=== PATIENT | female | born 1930 | race Caucasian/White ===

== ENCOUNTER 2019-12-13 12:23 | Emergency (ER) | payer OTHER, MEDICARE ==
[~2019-12-13] VITALS: Ht 160 cm; Wt 95.2 kg
[~2019-12-13 12:23] MED LIST: ALBU90OI6 INH; ASPI81EC; ASPI81EC PO; ATOR20 PO; CETI10 PO; CHLO25B PO; FELO5CR; FLUN25SP; FORM12IH IH; HYDACE5 PO; INDO25 PO; LISI20 PO; METH5; METH5 PO; MULVITMIND PO; OMEP20ER PO; PARO10; RANI150; VENL37.5ER PO; VERA240ER; VERA240ERB PO
[2019-12-13] MEDS ORDERED: Vitamin D2000 UNIT PO (12:45)
[2019-12-13] MEDS ORDERED: Voltaren100 GM TOP (12:46)
[2019-12-13] MEDS ORDERED: Flonase 0.05% N16 GM (12:46)
[2019-12-13] MEDS ORDERED: HYDROCHLOROTH12.5 MG PO (12:47)
[2019-12-13] MEDS ORDERED: HYDHCL25 PO (12:47)
[2019-12-13] MEDS ORDERED: LOSARTAN POTAS100 MG PO (12:48)
[2019-12-13] MEDS ORDERED: LIDO5TO TOP (12:48)
[2019-12-13] MEDS ORDERED: THERA1 EACH PO (12:49)
[2019-12-13] MEDS ORDERED: Naproxen250 MG PO (12:50)
[2019-12-13] MEDS ORDERED: Pedi-Dri 100,0060 GM TOP (12:50)
[2019-12-13] MEDS ORDERED: OXYC5 PO (12:51)
[2019-12-13] MEDS ORDERED: OMEP20ER PO (12:51)
[2019-12-13] MEDS ORDERED: TOLT4 PO (12:51)
[2019-12-13] MEDS ORDERED: Ranitidine HCl300 MG PO (12:51)
[2019-12-13] MEDS ORDERED: VERA240ER PO (12:52)
[2019-12-13] MEDS ORDERED: MERIBIN5 M1 PO (12:52)
[2019-12-13 13:08] LABS: BASOPHILS ABSOLUTE AUTO 0.04 K/mm3 (0.00-0.23); BASOPHILS PERCENT AUTO 1 % (0-2); EOSINOPHILS ABSOLUTE AUTO 0.35 K/mm3 (0.00-0.68); EOSINOPHILS PERCENT AUTO 5 % (0-6); Hematocrit 35.7 % (33.0-51.0); IMMATURE GRAN ABSOLUTE AUTO 0.03 K/mm3 (0.00-0.10); IMMATURE GRAN PERCENT AUTO 0 % (0-1); LYMPHOCYTES ABSOLUTE AUTO 1.89 K/mm3 (0.84-5.20); LYMPHOCYTES PERCENT AUTO 26 % (21-46); MONOCYTES ABSOLUTE AUTO 0.73 K/mm3 (0.16-1.47); MONOCYTES PERCENT AUTO 10 % (4-13); Mean Corpuscular HGB 21.5 pg (26.0-34.0); Mean Corpuscular Volume 77 fL (80-100); Mean Platelet Volume 9.9 fL (9.1-12.4); NEUTROPHILS ABSOLUTE AUTO 4.29 K/mm3 (1.96-9.15); NEUTROPHILS PERCENT AUTO 59 % (41-73); Platelet Count 342 K/mm3 (150-400); RDW Coefficient Variation 16.5 % (11.7-14.2); RDW Standard Deviation 45.7 fL (35.1-46.3); Red Blood Cell Count 4.66 M/mm3 (3.80-5.20); White Blood Cell Count 7.33 K/mm3 (4.00-11.30)
[2019-12-13 13:29] LABS: Alanine Aminotransfer (ALT/SGP 16 U/L (12-78); Albumin, Blood 3.3 g/dL (3.4-5.0); Alk Phos 112 U/L (50-136); Anion Gap 4 mmol/L (6-16); Aspartate Aminotrans (AST/SGOT 18 U/L (12-37); Bilirubin, Total 0.6 mg/dL (0.1-1.0); Blood Urea Nitrogen 19 mg/dL (8-24); Bun/Creatinine Ratio 27.3 (12.0-20.0); CO2, Blood 32 mmol/L (21-32); Calcium, Blood 10.1 mg/dL (8.5-10.1); Chloride, Blood 107 mmol/L (98-108); Globulin, Blood 3.4 g/dL (2.2-4.0); Glomerular Filtration Rate >60 (60-); Glucose, Blood 95 mg/dL (70-99); Potassium, Blood 4.1 mmol/L (3.5-5.5); Sodium, Blood 143 mmol/L (136-145); Total Protein, Blood 6.7 g/dL (6.4-8.2); Troponin I <0.015 ng/mL (0.000-0.040)
== END 2019-12-13 16:21 | disposition home or self-care (01) ==
LOC: ER 12:23
PROVIDERS: Physician Assistant
DX: R07.9 Chest pain, unspecified (principal); I10 Essential (primary) hypertension; E78.5 Hyperlipidemia, unspecified; F32.9 Major depressive disorder, single episode, unspecified; K21.9 Gastro-esophageal reflux disease without esophagitis
CPT/HCPCS: 71046; 80053; 83880; 84484; 85025; 93005; 93010; 93925; 99285-25

== ENCOUNTER 2020-02-02 20:28 | Inpatient (IN) | payer OTHER, MEDICARE ==
[~2020-02-02] VITALS: Ht 154.9 cm; Wt 96.1 kg
[~2020-02-02 20:28] MED LIST changes: +Flonase 0.05% N16 GM; +HYDHCL25 PO; +HYDROCHLOROTH12.5 MG PO; +LIDO5TO TOP; +LOSARTAN POTAS100 MG PO; +MERIBIN5 M1 PO; +Naproxen250 MG PO; +OXYC5 PO; +Pedi-Dri 100,0060 GM TOP; +Ranitidine HCl300 MG PO; +THERA1 EACH PO; +TOLT4 PO; +VERA240ER PO; +Vitamin D2000 UNIT PO; +Voltaren100 GM TOP
[2020-02-02] MEDS ORDERED: VERA240ER PO ×2 (23:42→23:43)
[2020-02-02] MEDS ORDERED: TOLT2 PO (23:44)
[2020-02-03 04:09] LABS: BASOPHILS ABSOLUTE AUTO 0.03 K/mm3 (0.00-0.23); BASOPHILS PERCENT AUTO 0 % (0-2); EOSINOPHILS ABSOLUTE AUTO 0.35 K/mm3 (0.00-0.68); EOSINOPHILS PERCENT AUTO 4 % (0-6); Hematocrit 32.5 % (33.0-51.0); IMMATURE GRAN ABSOLUTE AUTO 0.05 K/mm3 (0.00-0.10); IMMATURE GRAN PERCENT AUTO 1 % (0-1); LYMPHOCYTES ABSOLUTE AUTO 1.16 K/mm3 (0.84-5.20); LYMPHOCYTES PERCENT AUTO 13 % (21-46); MONOCYTES PERCENT AUTO 11 % (4-13); Mean Corpuscular HGB 19.5 pg (26.0-34.0); Mean Corpuscular HGB Conc 27.7 g/dL (31.5-36.5); Mean Corpuscular Volume 70 fL (80-100); Mean Platelet Volume 9.6 fL (9.1-12.4); NEUTROPHILS ABSOLUTE AUTO 6.28 K/mm3 (1.96-9.15); NEUTROPHILS PERCENT AUTO 71 % (41-73); Platelet Count 339 K/mm3 (150-400); RDW Coefficient Variation 17.3 % (11.7-14.2); RDW Standard Deviation 42.8 fL (35.1-46.3); Red Blood Cell Count 4.62 M/mm3 (3.80-5.20); White Blood Cell Count 8.87 K/mm3 (4.00-11.30)
[2020-02-03 04:30] LABS: Anion Gap 6 mmol/L (6-16); Blood Urea Nitrogen 24 mg/dL (8-24); Bun/Creatinine Ratio 28.6 (12.0-20.0); CO2, Blood 32 mmol/L (21-32); Calcium, Blood 9.7 mg/dL (8.5-10.1); Chloride, Blood 100 mmol/L (98-108); Creatinine, Blood 0.84 mg/dL (0.40-1.00); Glomerular Filtration Rate >60 (60-); Glucose, Blood 93 mg/dL (70-99); Potassium, Blood 3.5 mmol/L (3.5-5.5); Sodium, Blood 138 mmol/L (136-145)
--- NOTE | 2020-02-03 04:46 | NUR ---
SHIFT SUMMARY: PT ADMITTED LAST NIGHT FROM ED FOR SBO. PT A&O X4. DENIES ABD PAIN UPON ARRIVAL. NG TUBE CONNECTED TO LIS AND DRAINING GREEN/BROWN DRG. DENIES N/V. OUT OF BED TO BATHROOM WITH SBA+FWW WITH MINIMAL ASSISTANCE. PT REPORTS HAVING BM YESTERDAY MORNING. PASSING FLATUS. NPO WITH FLUIDS INFUSING.
--- NOTE | 2020-02-03 09:57 | NUR ---
DENIES ANY NAUSEA, NGT TO LIS, C/O SORE THROAT, DENIES ANY ABD PAIN OR NAUSEA AT THIS TIME, ABD SOFT AND NONTENDER, MONITOR FOR ANY CHANGES, ASSIST OOB, MEDICATE FOR PAIN PRN.
--- NOTE | 2020-02-03 12:17 | NUR ---
DR. CANALES NOTIFIED DURING ROUNDS THAT VERAPAMIL AND COZAAR WERE HELD THIS AM DUE TO PT NPO STATUS.
--- NOTE | 2020-02-03 17:33 | NUR ---
OOB TO CHAIR, AMBULATED DOWN THE RAMÍREZ TODAY, TOLERATED WELL, DENIES ANY NAUSEA OR PAIN, C/O SORE THROAT REPORTS CHLORASEPTIC SPRAY IS HELPING, NGT DRAINING CLEAR LIGHT BROWNISH DRAINAGE, NO ACUTE CHANGES THIS SHIFT.
--- NOTE | 2020-02-04 07:34 | NUR ---
SUMMARY NG WITH RICHARD/PINK DRNG. FLUSHES AND RETURNS APROPRIATELY. PO SLEPT QUIETLY. REPORTS PASSING FLATUS.VOIDING.
--- NOTE | 2020-02-04 10:28 | NUR ---
NGT TO GRAVITY AT THIS TIME PER DR. SANTILLAN ORDER.
--- NOTE | 2020-02-04 12:48 | NUR ---
PER MILL OPERATOR HELPER PT CONVERTED TO AFIB FOR A LITTLE OVER 1 MIN AT ABOUT 1235, CURRENTLY NSR, HR 70S. SEE TELE STRIPS IN CHART. UPON ASSESSMENT PT IS SITTING IN CHAIR COMFORTABLY, VSS, PT DENIES CP, SOB. WILL CTM
--- NOTE | 2020-02-04 13:31 | NUR ---
AFIB PT HAD BRIEF EPISODE OF AFIB IN 150S WHILE AMBULATING TO RESTROOM. SAT IN RESTROOM, WENT BACK TO SR IN 80S.
--- NOTE | 2020-02-04 13:47 | NUR ---
PERSONAL BELONGINGS DELIVERED TO ROOM FROM ED ENTRANCE.
--- NOTE | 2020-02-04 14:27 | NUR ---
DR. PEDROZA MADE AWARE OF PT CONVERTING TO AFIB AND THEN BACK TO NSR X2 OCCASIONS TODAY AT THIS TIME. PT STABLE CURRENTLY, ASYMPTOMATIC. SEE TELE STRIPS IN CHART
--- NOTE | 2020-02-04 17:08 | NUR ---
SUMMARY: PT ADMITTED FOR SBO. HAS DONE WELL TODAY. PT HAS TOLERATED NGT TO GRAVITY AND SMALL AMT ICE CHIPS. DENIES N/V. REPORTS FLATUS, NO BM " BUT FEELS LIKE SHE COULD HAVE ONE". TELE AND VSS AT THIS TIME. PT IS A/O, USES CALL LIGHT. DENIES PAIN, NO ACUTE CONCERNS AT THIS TIME.
--- NOTE | 2020-02-04 19:37 | NUR ---
PER PLANT ENGINEER PT IN AFIB IN THE 110'S-120'S. HAS BEEN SUSTAINED NOW FOR AROUND 30 MINUTES. PT ASYMPTOMATIC, REPORTS SLIGHT SOB. PT STATED THAT WAS NORMAL FROM BEFORE. DENIES CP. SPOKE TO HOSPITALIST WHO WILL BE PLACING ORDERS. WILL CONTINUE TO MONITOR PATIENT FOR ANY CHANGES IN CHEST PAIN, LOC OR SHORTNESS OF BREATH.
--- NOTE | 2020-02-04 20:07 | NUR ---
EKG DONE. HOSPITALIST, PETRONA, IN TO SEE PT. LOPRESSOR GIVEN PER EMAR. TELE MONITOR AWARE.
[2020-02-04 20:59] LABS: Anion Gap 9 mmol/L (6-16); Blood Urea Nitrogen 19 mg/dL (8-24); Bun/Creatinine Ratio 26.3 (12.0-20.0); CO2, Blood 27 mmol/L (21-32); Calcium, Blood 9.2 mg/dL (8.5-10.1); Chloride, Blood 110 mmol/L (98-108); Creatinine, Blood 0.72 mg/dL (0.40-1.00); Glomerular Filtration Rate >60 (60-); Glucose, Blood 57 mg/dL (70-99); Magnesium, Blood 1.8 mg/dL (1.6-2.4); Potassium, Blood 5.1 mmol/L (3.5-5.5); Sodium, Blood 146 mmol/L (136-145)
--- NOTE | 2020-02-04 21:33 | NUR ---
SPOKE TO HOSPITALIST PETRONA REGARDING GLUCOSE LEVEL OF 57 ON LAB DRAW AND 47 ON FOLLOW UP FINGERSTICK. ORDERS TO GIVE 1 AMP OF D50 AND SIPS OF JUICE. PT ASYMPTOMATIC CURRENTLY, SITTING UP IN BED TOLERATED SIPS OF PO JUICE WELL. WILL HANG BAG OF 5% DEXTROSE ORDERED AND CONTIUE TO MONITOR PT.
[2020-02-04 21:58] LABS: Free Thyroxine 1.19 ng/dL (0.70-1.60)
[2020-02-04 22:01] LABS: Triiodothyronine, Free 1.75 pg/mL (2.18-3.98)
--- NOTE | 2020-02-04 23:21 | NUR ---
SPOKE TO HOSPITALIST PETRONA R/T ELEVATED TROPONIN. PLAN IS TO TRANSFER PT TO PCU FOR CLOSER MONITORING AND INCREASED LEVEL OF CARE. PT CURRENTLY RESTING IN BED, DENIES PAIN OR NAUSEA. DENIES SOB.
--- NOTE | 2020-02-04 23:48 | NUR ---
REPORT GIVEN TO JOSEFINA MELÉNDEZ IN PCU. WILL TRANSFER PT VIA BED. BELONGINGS WITH PATIENT AT THIS TIME. PATIENT AWARE OF TRANSFER AND ACCEPTING.
[2020-02-05 00:01] LABS: International Normalized Ratio 1.07; Prothrombin Time Results 11.4 Sec (9.7-11.5)
--- NOTE | 2020-02-05 07:31 | NUR ---
SHIFT SUMMARY PT ARRIVED VIA BED FROM SURG FLOOR; A&O X3; NEW ONSET AFIB; PROVIDER AT BEDSIDE; PO PLAVIX, ASPIRIN GIVEN W/ SIPS OF WATER; HEP BOLUS GIVEN; HEP GTT STARTED @ 13 U; LASIX IV GIEN; PT CONVERTED TO NSR APPROXIMATELY @ 0005; CBG >100 WILL MOVE TO Q4; VSS; O2 SATS >93 ON 1L NC; NG TUBE W/ GRAVITY; MINIMAL DRAINAGE NOTED; PT USED BEDPAN FOR URINATION; PT STATES SHE LIVES AT HOME W/ HER SISTER; DENIES NEEDS AT THIS TIME; CALL LIGHT IN REACH; BED IN LOWEST POSITION; REPORT GIVEN TO DAY SHIFT RN.
[2020-02-05 07:58] LABS: Anion Gap 4 mmol/L (6-16); Blood Urea Nitrogen 14 mg/dL (8-24); Bun/Creatinine Ratio 20.3 (12.0-20.0); CO2, Blood 32 mmol/L (21-32); Chloride, Blood 105 mmol/L (98-108); Creatinine, Blood 0.69 mg/dL (0.40-1.00); Glomerular Filtration Rate >60 (60-); Glucose, Blood 94 mg/dL (70-99); Potassium, Blood 3.8 mmol/L (3.5-5.5); Sodium, Blood 141 mmol/L (136-145)
--- NOTE | 2020-02-05 08:51 | NUR ---
echocardiogram complete
--- NOTE | 2020-02-05 18:25 | NUR ---
SHIFT SUMMARY PT IS A&OX4. NG TUBE WAS DISCONTINUED AFTER LUNCH PT WAS TOLERATING CLEAR LIQUIDS. PT REPORTS SHE IS STILL PASSING GAS. PT HAS DENIED ANY CHEST PAIN OR PRESSURE. TELEMETRY HAS SHOWN PT TO BE IN SINUS RHYTHM TODAY. CARDIOLOGY WAS CONSULTED BY DR AVILES AND PLAN IS STRESS TEST TOMORROW AFTERNOON. HEPARIN GTT CONTINUES TO INFUSE PER PHARMACY'S RECOMMENDATIONS. PT'S CBG HAS IMPROVED TODAY, NOW THAT PT IS ABLE TO HAVE CLEARS. D5W INFUSION WAS STOPPED. VITALS HAVE REMAINED STABLE.
--- NOTE | 2020-02-05 21:00 | NUR ---
ASSUMPTION OF CARE ASSUMED CARE OF PT @ 1900, PT AWAKE IN BED ORIENTED TO SELF, PLACE, EVENT AND FOLLOWING DIRECTIONS. O2 SATURATIONS 90% ON RA, INITIALLY DECLINED SUPPLEMENTAL O2 BUT THEN AGREED TO PLACE 2L PER NC. NSR PER TELE MONITOR. PT TOLERATING CLEAR LIQUID DIET, REPORTS SOME ACID REFLUX WHICH IS NORMAL FOR PT, CBG 108. PT DENIES CP, SOB, OR NAUSEA. HEPARIN INF, SEE FLOWSHEET. CALL LIGHT WITHIN REACH.
[2020-02-06 03:43] LABS: BASOPHILS ABSOLUTE AUTO 0.05 K/mm3 (0.00-0.23); BASOPHILS PERCENT AUTO 1 % (0-2); EOSINOPHILS ABSOLUTE AUTO 0.41 K/mm3 (0.00-0.68); EOSINOPHILS PERCENT AUTO 5 % (0-6); Hematocrit 33.2 % (33.0-51.0); IMMATURE GRAN ABSOLUTE AUTO 0.09 K/mm3 (0.00-0.10); IMMATURE GRAN PERCENT AUTO 1 % (0-1); LYMPHOCYTES ABSOLUTE AUTO 1.18 K/mm3 (0.84-5.20); LYMPHOCYTES PERCENT AUTO 13 % (21-46); MONOCYTES ABSOLUTE AUTO 0.67 K/mm3 (0.16-1.47); MONOCYTES PERCENT AUTO 8 % (4-13); Mean Corpuscular HGB 19.4 pg (26.0-34.0); Mean Corpuscular HGB Conc 27.1 g/dL (31.5-36.5); Mean Corpuscular Volume 72 fL (80-100); Mean Platelet Volume 9.3 fL (9.1-12.4); NEUTROPHILS ABSOLUTE AUTO 6.41 K/mm3 (1.96-9.15); NEUTROPHILS PERCENT AUTO 73 % (41-73); Platelet Count 374 K/mm3 (150-400); RDW Coefficient Variation 17.6 % (11.7-14.2); Red Blood Cell Count 4.64 M/mm3 (3.80-5.20); White Blood Cell Count 8.81 K/mm3 (4.00-11.30)
[2020-02-06 04:05] LABS: Alanine Aminotransfer (ALT/SGP 16 U/L (12-78); Albumin, Blood 2.7 g/dL (3.4-5.0); Albumin/Globulin Ratio 0.9 (0.8-1.8); Alk Phos 99 U/L (50-136); Anion Gap 4 mmol/L (6-16); Aspartate Aminotrans (AST/SGOT 18 U/L (12-37); Bilirubin, Total 0.3 mg/dL (0.1-1.0); Blood Urea Nitrogen 9 mg/dL (8-24); Bun/Creatinine Ratio 14.2 (12.0-20.0); CO2, Blood 32 mmol/L (21-32); Calcium, Blood 9.3 mg/dL (8.5-10.1); Chloride, Blood 105 mmol/L (98-108); Creatinine, Blood 0.63 mg/dL (0.40-1.00); Globulin, Blood 2.9 g/dL (2.2-4.0); Glomerular Filtration Rate >60 (60-); Glucose, Blood 119 mg/dL (70-99); Potassium, Blood 3.9 mmol/L (3.5-5.5); Sodium, Blood 141 mmol/L (136-145); Total Protein, Blood 5.6 g/dL (6.4-8.2)
--- NOTE | 2020-02-06 06:27 | NUR ---
SHIFT SUMMARY PT RESTED T/O SHIFT, AROUSES TO VERBAL STIMULI, ORIENTED TO SELF, EVENT, PLACE AND FOLLOWS DIRECTIONS. 02 SATURATIONS MAINTAINED>90% ON 2L PER NC WHILE SLEEPING, HR AND BP STABLE. PT TOLERATING CLEAR LIQUIDS, REPORTS NAUSEA THIS MORNING, PRN ZOFRAN PROVIDED WITH SOME RELEIF, CRACKERS PROVIDED, PT SLEEPING UPON REASSESSMENT. PT VOIDING PER BEDPAN. MORNING APTT 29.6, LIKELY D/T INFILTRATION OF LFA IV, IV DC'D. HEPARIN BOLUS x2 THIS SHIFT WITH INCREASES IN GTT RATE, CURRENTLY INFUSING AT 19u/kg/hr OR 25.8ml/hr. CALL LIGHT WITHIN REACH.
--- NOTE | 2020-02-06 09:43 | NUR ---
Pt is A&OX4 and denies pain at this time. Pt reports mild nausea and denies anxiety and SOB. Engaged in therapeutic discussion regarding Advanced Care Planning. Pt reports living at home with her sister. Pt reports having caregivers come into the home 3 times a week to assist with some of her ADLs. Pt is a and this RN thanked her for her service. Discussed current plan of care with Pt expressing no concerns. Confirmed Pt's wishes for DNR status. [facility] also [facility] Discussed stress test scheduled for today with Pt being agreeable. Pt also reports if cardiac intervention needs to be done she is agreeable if appropriate. Educated Pt on the importance of routine conversations with her PCP and specialists. Educated on the importance of developing multiple plans with PCP as disease process takes its coarse. Pt expressess appreciation of visit and reports no other concerns at this time. Spoke with Bedside RIKA Luis prior to visit and discussed case. Faxed request to [place] for copy of AD/POLST. Palliative Care will remain available.
--- NOTE | 2020-02-06 12:20 | NUR ---
Spiritual care visit conducted. Patient is sitting up in bed and alert. Patient shares about her home, living with her sister and their 2 dogs. Patient talks about her caodaism belief system and how she attend [facility] in [place] when she is well enough. Patient explains about her medical issues. I listen empathically, normalize patient's experience and provide pastoral pediatric genetic counselor and prayer. Patient responds well and shows signs of restored cheli. I will continue to remain available to patient and family.
--- NOTE | 2020-02-06 17:51 | NUR ---
PCU DAYSHIFT SUMMARY PATIENT ALERT AND ORIENTED X4 T/O SHIFT. PATIENT SBA WITH TRANSFERS (TOLERATES FAIR). PATIENT ON 2 LPM NC T/O SHIFT, SOB WITH EXCERTION - LUNG SOUNDS CLEAR TO DIM. PATIENT REMAINED IN NSR T/O SHIFT WITH NO CARDIAC EVENTS PER STAFF INTERNIST OFFICE BASED ONLY. PATIENT HAD 1ST PART OF STRESS TEST THIS SHIFT AND WILL HAVE 2ND HALF TOMORROW DAYSHIFT. PATIENT REMAINS NAUSEAS T/O SHIFT WITH INABILITY TO TOLERATE FOOD T/O SHIFT - MEDICATED PER EMAR. PATIENT WAS ABLE TO PASS 1 SMALL BOWEL MOVEMENT THIS SHIFT. HEPARIN GTT RUNNING PER EMAR. NO ACUTE CHANGES T/O SHIFT. WILL CONTINUE TO MONITOR AND GIVE REPORT TO NOC SHIFT RN. PT/OT THERAPIES STARTED THIS SHIFT.
--- NOTE | 2020-02-06 22:42 | NUR ---
SPIKE WITH PAHARMACIST ORDERS NOTED CONTINUE TO MONITOR AND REPORT CHANGE IN PATIENT CONDITION
--- NOTE | 2020-02-06 23:03 | NUR ---
ASSUME CARE: REPORT RECIEVED FROM SHANE OFF GOING RN. ASSIST TO BSC. MONITOR INTACT SHOWING SINUS RHYTHM HEART RATE 60'S-70'S. DENIES DISCOMFORT NO EMESIS OCC COUGH NON PRODUCTIVE LUNG SOUND CLEAR UPPER LOBES WITH DECREASED SOUNDS IN R BASE. RESPIRATIONS REGULAR AND EASY AT REST SOB WITH ACTIVITY. ABDOMEN SOFT/ TENDER WITH BOWEL SOUNDS FOUR QUADS. VOIDS ALEXANDRA URINE MIXED WITH SOFT FORMED BROWN STOOL MEDIUM AMT. TRACE EDEMA IN LOWER EXTREMITIES . EXTREMITIES PLACED ON PILLOWS. CONTINUE TO MONITOR AND REPORT CHANGE IN PATIENT CONDITION
[2020-02-07 03:40] LABS: BASOPHILS ABSOLUTE AUTO 0.03 K/mm3 (0.00-0.23); BASOPHILS PERCENT AUTO 0 % (0-2); EOSINOPHILS ABSOLUTE AUTO 0.21 K/mm3 (0.00-0.68); EOSINOPHILS PERCENT AUTO 3 % (0-6); Hematocrit 31.9 % (33.0-51.0); Hemoglobin 8.4 g/dL (11.5-16.0); IMMATURE GRAN ABSOLUTE AUTO 0.09 K/mm3 (0.00-0.10); IMMATURE GRAN PERCENT AUTO 1 % (0-1); LYMPHOCYTES ABSOLUTE AUTO 0.88 K/mm3 (0.84-5.20); LYMPHOCYTES PERCENT AUTO 10 % (21-46); MONOCYTES ABSOLUTE AUTO 0.89 K/mm3 (0.16-1.47); MONOCYTES PERCENT AUTO 10 % (4-13); Mean Corpuscular HGB 19.3 pg (26.0-34.0); Mean Corpuscular HGB Conc 26.3 g/dL (31.5-36.5); Mean Corpuscular Volume 73 fL (80-100); Mean Platelet Volume 9.3 fL (9.1-12.4); NEUTROPHILS ABSOLUTE AUTO 6.43 K/mm3 (1.96-9.15); NEUTROPHILS PERCENT AUTO 75 % (41-73); Platelet Count 353 K/mm3 (150-400); RDW Coefficient Variation 17.2 % (11.7-14.2); Red Blood Cell Count 4.35 M/mm3 (3.80-5.20); White Blood Cell Count 8.53 K/mm3 (4.00-11.30)
[2020-02-07 04:00] LABS: Alanine Aminotransfer (ALT/SGP 14 U/L (12-78); Albumin, Blood 2.4 g/dL (3.4-5.0); Albumin/Globulin Ratio 0.9 (0.8-1.8); Alk Phos 94 U/L (50-136); Anion Gap 4 mmol/L (6-16); Aspartate Aminotrans (AST/SGOT 16 U/L (12-37); Bilirubin, Total 0.3 mg/dL (0.1-1.0); Blood Urea Nitrogen 7 mg/dL (8-24); Bun/Creatinine Ratio 11.6 (12.0-20.0); CO2, Blood 30 mmol/L (21-32); Calcium, Blood 8.9 mg/dL (8.5-10.1); Chloride, Blood 107 mmol/L (98-108); Globulin, Blood 2.7 g/dL (2.2-4.0); Glomerular Filtration Rate >60 (60-); Glucose, Blood 107 mg/dL (70-99); Magnesium, Blood 1.4 mg/dL (1.6-2.4); Potassium, Blood 3.9 mmol/L (3.5-5.5); Sodium, Blood 141 mmol/L (136-145); Total Protein, Blood 5.1 g/dL (6.4-8.2)
[2020-02-07 04:22] LABS: Percent Saturation 5.6 % (15.0-50.0)
--- NOTE | 2020-02-07 07:30 | NUR ---
ASSUMED PATIENT CARE. PATIENT SLEEPING COMFORTABLY IN BED, NO SIGNS OF ACUTE DISTRESS. WCTM.
--- NOTE | 2020-02-07 12:08 | NUR ---
Spiritual care visit conducted. Patient is sitting on a chair and alert. Patient talks about her life growing up, about the cheli legacy passed down to her from her grandmother and about how her cheli is holding up today. I listen empathically and provide prayer. Patient verbalizes appreciation for the visit.
--- NOTE | 2020-02-07 17:42 | NUR ---
NO ACUTE EVENTS THIS SHIFT. HEPARIN DRIP WAS DC'd THIS SHIFT. PATIENT WAS ABLE TO A GOOD AMOUNT OF GAS THIS SHIFT. 2ND PART OF STRESS TEST WAS COMPLETED TODAY. PATIENT DID NO COMPLAIN OF ANY NAUSEA TODAY. PATIENT WAS ABLE TO WORK WITH PT/OT TODAY. PATIENT ANEMIC AND RECEIVED IV IRON SUPPLEMENT TODAY.
[2020-02-08 03:38] LABS: BASOPHILS ABSOLUTE AUTO 0.04 K/mm3 (0.00-0.23); BASOPHILS PERCENT AUTO 1 % (0-2); EOSINOPHILS ABSOLUTE AUTO 0.23 K/mm3 (0.00-0.68); EOSINOPHILS PERCENT AUTO 3 % (0-6); Hematocrit 29.2 % (33.0-51.0); Hemoglobin 7.8 g/dL (11.5-16.0); IMMATURE GRAN PERCENT AUTO 2 % (0-1); LYMPHOCYTES ABSOLUTE AUTO 0.88 K/mm3 (0.84-5.20); LYMPHOCYTES PERCENT AUTO 13 % (21-46); MONOCYTES ABSOLUTE AUTO 0.84 K/mm3 (0.16-1.47); MONOCYTES PERCENT AUTO 13 % (4-13); Mean Corpuscular HGB 19.4 pg (26.0-34.0); Mean Corpuscular HGB Conc 26.7 g/dL (31.5-36.5); Mean Corpuscular Volume 73 fL (80-100); Mean Platelet Volume 9.5 fL (9.1-12.4); NEUTROPHILS ABSOLUTE AUTO 4.65 K/mm3 (1.96-9.15); NEUTROPHILS PERCENT AUTO 69 % (41-73); Platelet Count 311 K/mm3 (150-400); RDW Coefficient Variation 17.4 % (11.7-14.2); Red Blood Cell Count 4.03 M/mm3 (3.80-5.20); White Blood Cell Count 6.74 K/mm3 (4.00-11.30)
[2020-02-08 04:06] LABS: Magnesium, Blood 1.8 mg/dL (1.6-2.4)
[2020-02-08 04:07] LABS: Alanine Aminotransfer (ALT/SGP 19 U/L (12-78); Albumin, Blood 2.5 g/dL (3.4-5.0); Alk Phos 102 U/L (50-136); Anion Gap 3 mmol/L (6-16); Aspartate Aminotrans (AST/SGOT 22 U/L (12-37); Bilirubin, Total 0.3 mg/dL (0.1-1.0); Blood Urea Nitrogen 8 mg/dL (8-24); Bun/Creatinine Ratio 12.4 (12.0-20.0); CO2, Blood 30 mmol/L (21-32); Calcium, Blood 9.3 mg/dL (8.5-10.1); Chloride, Blood 109 mmol/L (98-108); Creatinine, Blood 0.65 mg/dL (0.40-1.00); Globulin, Blood 2.6 g/dL (2.2-4.0); Glomerular Filtration Rate >60 (60-); Glucose, Blood 94 mg/dL (70-99); Potassium, Blood 3.8 mmol/L (3.5-5.5); Sodium, Blood 142 mmol/L (136-145); Total Protein, Blood 5.1 g/dL (6.4-8.2)
--- NOTE | 2020-02-08 04:35 | NUR ---
SHIFT SUMMARY PT A&O X3; PLEASANT & COMPLIANT W/ CARE; VSS; DENIES CP; NSR NOTED ON TELE; O2 SATS > 90 ON RA; TOLERATING CLEAR LIQUID DIET WELL; BEDPAN FOR VOIDING; CALLS APPROPRIATELY; DENIES NEEDS AT THIS TIME; CALL LIGHT IN REACH; BED IN LOWEST POSITION; WILL CONTINUE TO MONITOR CLOSELY UNTIL HAND OFF TO DAY SHIFT RN.
--- NOTE | 2020-02-08 09:44 | NUR ---
AM NOTE... ASSUMED CARE OF PT APROX 0700. PT IS A&Ox4 AND VERY [place]. PT'S VS STABLE AT THIS TIME. SHE IS SITTING UP IN THE CHAIR FOR BREAKFAST. L/S CLEAR T/O. BT PRSENT BUT HYPOACTIVE, ABD IS FRIM AND TENDER TO PALP IN THE LOWER QUADRANTS. PT IS ON RA WITH O2 SATS AT 93% PT REQUESTED NC AT 2L FOR COMFORT. TRACE EDEMA IS NOTED TO THE PT'S BLE/FEET. CALL LIGHT IN REACH WILL CONTINUE TO MONITOR
--- NOTE | 2020-02-08 17:27 | NUR ---
SHIFT SUMMARY... NO ACUTE NEGATIVE CHANGES NOTED THIS SHIFT. PT HAS DENIED ANY CHEST PAIN/PRESSURE N/V OR SOB THIS SHIFT. PT'S VS HAVE BEEN STABLE T/O SHIFT. PT HAS BEEN ABLE TO WALK TO THE BATHROOM TO VOID AND HAS BEEN UP IN THE CHAIR FOR MEALS AND SEVERAL HOURS AFTER MEALS. PT C/O TO THIS RN ABOUT HER "BUTT HURTING." THIS RN ASSESSED THE PT'S COCCYX AND BUTTOCKS, THERE IS AN AREA OF THE SKIN IN THE GLUTIAL CLEFT THAT HAS SPLIT OPEN, THIS AREA WAS CLEANED AND BARRIER CREAM APPLIED. ALSO THIS RN NOTED THE PT'S BUTTOCKS WERE DEEP PURPLE, ALL AREAS WERE STILL BLANCHABLE, PT DENIES ANY RECENT FALLS BUT STATES THE AREA IS VERY SORE. PT IS ENCOURAGED TO BE UP IN THE CHAIR FOR MEALS BUT TO NOT SIT IN THE CHAIR ALL DAY. Q2 TURNS WHILE IN BED IMPLEMENTED. PT HAS WORKED WITH PT/OT TODAY. PT WAS SEEN BY CARDIOLOGY AND IS PLANNING ON FOLLOWING UP WITH CARDIOLOGY AN OUTPATIENT. CALL LIGHT IN REACH WILL CONTINUE TO MONITOR UNTIL REPORT IS GIVEN TO ONCOMING RN.
--- NOTE | 2020-02-08 21:33 | NUR ---
ASSUMED CARE APPROXIMATELY 1899; PT SEEMED FRUSTRATED W/ WAY SHE WAS FEELING; C/O NAUSEA; ZOFRAN GIVEN PER EMAR; VSS; DENIES CP; O2 SATS >91 ON RA; THIS RN SAT W/ PT TO LISTEN TO FEELINGS; APPROXIMATELY 2029 PT BEGAN VOMITING; PROVIDER NOTIFIED OF PT CONTINUING TO VOMIT; NEW ORDERS GIVEN FOR ZOFRAN INCREASE; PHENEGRAN; & COMPAZINE; REFER TO EMAR; CALL LIGHT IN REACH; BED IN LOWEST POSITION
--- NOTE | 2020-02-08 22:45 | NUR ---
UPDATE PT CONTINUES TO VOMIT; PHENEGRAN & COMPAZINE ADMINISTERED PER EMAR; PT CHANGED; CLEANED; ORAL CARE PROVIDED
--- NOTE | 2020-02-08 23:25 | NUR ---
UPDATE PT CURRENTLY SLEEPING; HOB ELEVATED TO 90; CALL LIGHT IN REACH
[2020-02-09 04:07] LABS: BASOPHILS ABSOLUTE AUTO 0.05 K/mm3 (0.00-0.23); BASOPHILS PERCENT AUTO 0 % (0-2); EOSINOPHILS ABSOLUTE AUTO 0.05 K/mm3 (0.00-0.68); EOSINOPHILS PERCENT AUTO 0 % (0-6); Hematocrit 32.1 % (33.0-51.0); Hemoglobin 8.5 g/dL (11.5-16.0); IMMATURE GRAN ABSOLUTE AUTO 0.36 K/mm3 (0.00-0.10); IMMATURE GRAN PERCENT AUTO 3 % (0-1); LYMPHOCYTES ABSOLUTE AUTO 1.07 K/mm3 (0.84-5.20); LYMPHOCYTES PERCENT AUTO 9 % (21-46); MONOCYTES ABSOLUTE AUTO 0.89 K/mm3 (0.16-1.47); MONOCYTES PERCENT AUTO 8 % (4-13); Mean Corpuscular HGB 19.3 pg (26.0-34.0); Mean Corpuscular HGB Conc 26.5 g/dL (31.5-36.5); Mean Corpuscular Volume 73 fL (80-100); Mean Platelet Volume 10.1 fL (9.1-12.4); NEUTROPHILS ABSOLUTE AUTO 9.34 K/mm3 (1.96-9.15); NEUTROPHILS PERCENT AUTO 79 % (41-73); Platelet Count 378 K/mm3 (150-400); RDW Coefficient Variation 17.5 % (11.7-14.2); RDW Standard Deviation 45.5 fL (35.1-46.3); White Blood Cell Count 11.76 K/mm3 (4.00-11.30)
[2020-02-09 04:31] LABS: Alanine Aminotransfer (ALT/SGP 32 U/L (12-78); Albumin, Blood 2.8 g/dL (3.4-5.0); Albumin/Globulin Ratio 0.9 (0.8-1.8); Alk Phos 116 U/L (50-136); Anion Gap 3 mmol/L (6-16); Aspartate Aminotrans (AST/SGOT 43 U/L (12-37); Bilirubin, Total 0.4 mg/dL (0.1-1.0); Blood Urea Nitrogen 11 mg/dL (8-24); Bun/Creatinine Ratio 12.4 (12.0-20.0); CO2, Blood 32 mmol/L (21-32); Calcium, Blood 9.9 mg/dL (8.5-10.1); Chloride, Blood 106 mmol/L (98-108); Creatinine, Blood 0.89 mg/dL (0.40-1.00); Glomerular Filtration Rate >60 (60-); Glucose, Blood 108 mg/dL (70-99); Potassium, Blood 4.1 mmol/L (3.5-5.5); Sodium, Blood 141 mmol/L (136-145); Total Protein, Blood 5.8 g/dL (6.4-8.2)
--- NOTE | 2020-02-09 05:56 | NUR ---
SHIFT SUMMARY PT SHORT EPISODE OF N/V; ZOFRAN ADMINISTERED PER EMAR; MINIMAL VOLUME; VSS; O2 SATS >92 ON RA; PT CURRENTLY RESTING; CALL LIGHT IN REACH; BED IN LOWEST POSITION; WILL CONTINUE TO MONITOR CLOSELY UNTIL HAND OFF TO DAY SHIFT RN.
--- NOTE | 2020-02-09 07:55 | NUR ---
AM NOTE... ASSUMED CARE OF PT APROX 0700. PT IS A&Ox3 WITH MOMENTS OF FORGETFULNESS. PER NOC SHIFT RN REPORT PT HAD N/V ALL NIGHT WITH VERY LITTLE SLEEP. THIS AM PT IS VERY TIRED AND REFUSED BREAKFAST AND/OR GETTING UP IN THE CHAIR. PT'S VS STABLE AT THIS TIME. L/S CLEAR T/O COARSE DIM INTHE BASES. BT PRESENT BUT HYPOACTIVE, ABD SOFT BUT SLIGHTLY TENDER TO PALP IN THE LOWER QUADRANTS. PT'S BUTTOCKS STILL HAS AREAS OF DARK PURPLE AND RED FROM "SITTING IN A CHAIR AT HOME ALL DAY" PER THE PT. PT IS EDUCATED AGAIN ABOUT PRESSURE ULCER PREVENTION AND REPOSITIONING. PT VERBALIZED HER UNDERSTANDING. CALL LIGHT IN REACH WILL CONTINUE TO MONITOR.
--- NOTE | 2020-02-09 14:45 | NUR ---
TRANSFER NOTE REPORT TAKEN FROM ELLEN MELÉNDEZ. PT BROUGHT BY W/C FROM [facility]. PT IS A&O, PT HAS SL IN PLACE WRIST 20G. PT ON RA. PT ORIENTED TO ROOM.
--- NOTE | 2020-02-09 19:17 | NUR ---
SHIFT SUMMARY PT A&O TRANSFERRED FROM PCU EARLIER THIS SHIFT, PT TOLORATED DINNER WELL AND ROZ NAUSEA. PT ENCOURAGED TO REPOSITION Q 2HR TO REDUCE REDNESS TO COCCXY. PT ROZ ANY PAIN THIS SHIFT. PT HAS CALL LIGHT WITH IN REACH AND WILL REPORT TO ONCOMING SHIFT.
--- NOTE | 2020-02-10 02:07 | NUR ---
INSOMNIA: PATIENT REPORTS INSOMNIA, DR AVILES IS NOTIFIED AND ORDER FOR MELATONIN PRN IS OBTAINED.
[2020-02-10 05:06] LABS: Hematocrit 29.1 % (33.0-51.0); Hemoglobin 7.8 g/dL (11.5-16.0); Mean Corpuscular HGB 19.5 pg (26.0-34.0); Mean Corpuscular HGB Conc 26.8 g/dL (31.5-36.5); Mean Corpuscular Volume 73 fL (80-100); Mean Platelet Volume 10.2 fL (9.1-12.4); Platelet Count 350 K/mm3 (150-400); RDW Coefficient Variation 17.8 % (11.7-14.2); RDW Standard Deviation 45.3 fL (35.1-46.3)
[2020-02-10 05:22] LABS: Albumin, Blood 2.5 g/dL (3.4-5.0); Anion Gap 4 mmol/L (6-16); Blood Urea Nitrogen 12 mg/dL (8-24); Bun/Creatinine Ratio 15.1 (12.0-20.0); CO2, Blood 32 mmol/L (21-32); Calcium, Blood 9.1 mg/dL (8.5-10.1); Chloride, Blood 106 mmol/L (98-108); Creatinine, Blood 0.79 mg/dL (0.40-1.00); Glomerular Filtration Rate >60 (60-); Glucose, Blood 92 mg/dL (70-99); Phosphorus, Blood 2.9 mg/dL (2.5-4.9); Sodium, Blood 142 mmol/L (136-145)
--- NOTE | 2020-02-10 08:29 | NUR ---
SHIFT SUMMARY: PATIENT REPORTS GOOD EFFECT FROM MELATONIN FOR SLEEP. VS ARE STABLE. NO COMPLAINTS OF PAIN. PATIENT IS SOB WITH ACTIVITY AND DESTED TO 89% ON RA DURING SLEEP, 2L WAS APPLIED AND SAT GOES UP TO 93% GAIT IS STEADY WITH FWW AND SBA OF 1.
[2020-02-10] MEDS ORDERED: MELA3 PO (10:48)
[2020-02-10] MEDS ORDERED: XARELTO20 MG PO (10:49)
--- NOTE | 2020-02-10 13:53 | NUR ---
PT DCD HOME WITH SISTER, CAREGIVER AND HOME HEALTH. ACCORDING TO PT BERTRAM SHE IS BACK TO BASELINE AND DR LALA. IV REMOVED WITH NO ISSUE. ALL INSTRUCTIONS REVIEWED WITH PT WHO VERBALIZED AN UNDERSTANDING. MED REC FAXED TO [facility] PER PT REQUEST. PT STATED SHE WOULD SCHEDULE HER OWN FOLLOW UP APPTS. ALL PERSONAL BELONGINGS SENT WITH PT. SISTER DROVE PT HOME. PT STABLE UPON DC.
== END 2020-02-10 13:53 | disposition home health service (06) | DRG 388 ==
LOC: ER 20:28 → SURS 22:50 → PCU 22:50 → SURS 23:29 → PCU 02-04 23:58 → MEDS 02-09 14:39 → ENPENDDIS 02-10 10:05 → MEDS 02-10 13:53
PROVIDERS: Internal Medicine; Nurse Practitioner Acute Care; ADMIT Internal Medicine
DX: K56.609 Unspecified intestinal obstruction, unspecified as to partial versus complete obstruction (principal); I21.4 Non-ST elevation (NSTEMI) myocardial infarction; M19.90 Unspecified osteoarthritis, unspecified site; I10 Essential (primary) hypertension; K21.9 Gastro-esophageal reflux disease without esophagitis; Z96.641 Presence of right artificial hip joint; Z96.651 Presence of right artificial knee joint; Z87.891 Personal history of nicotine dependence; E66.9 Obesity, unspecified; E16.2 Hypoglycemia, unspecified; E11.9 Type 2 diabetes mellitus without complications; I48.0 Paroxysmal atrial fibrillation; Z66 Do not resuscitate; Z68.37 Body mass index [BMI] 37.0-37.9, adult; F32.9 Major depressive disorder, single episode, unspecified; G47.33 Obstructive sleep apnea (adult) (pediatric)
CPT/HCPCS: 36415; 36416; 71045; 78452; 80048; 80053; 80069; 82607; 82728; 82746; 82947; 83540; 83550; 83735; 83880; 84100; 84436; 84439; 84443; 84481; 84484; 85025; 85027; 85049; 85610; 85730; 93005; 93010; 93017; 93306; 94761; 97110; 97116; 97162; 97166; 97530; 97535; 99285; A9270-GY; A9500; C9113; J0780; J1644; J1940; J2405; J2550; J2785; J2916; J3475; J3480; J7070

== ENCOUNTER → 2020-02-21 | Outpatient (CLI) | payer MEDICARE ==
[~2020-02-21] MED LIST changes: +MELA3 PO; +TOLT2 PO; +XARELTO20 MG PO
[2020-02-21 16:15] LABS: Anion Gap 4 mmol/L (6-16); Blood Urea Nitrogen 12 mg/dL (8-24); Bun/Creatinine Ratio 18.6 (12.0-20.0); CO2, Blood 32 mmol/L (21-32); Calcium, Blood 9.5 mg/dL (8.5-10.1); Chloride, Blood 105 mmol/L (98-108); Creatinine, Blood 0.64 mg/dL (0.40-1.00); Glomerular Filtration Rate >60 (60-); Glucose, Blood 109 mg/dL (70-99); Potassium, Blood 3.7 mmol/L (3.5-5.5); Sodium, Blood 141 mmol/L (136-145)
== END | disposition home or self-care (01) ==
LOC: LAB 14:53 → LAB SHORT 14:53
PROVIDERS: Internal Medicine Nephrology
DX: I10 Essential (primary) hypertension (principal); I48.0 Paroxysmal atrial fibrillation; I21.4 Non-ST elevation (NSTEMI) myocardial infarction
CPT/HCPCS: 80048; 83880

== ENCOUNTER → 2020-02-24 | Outpatient (CLI) | payer OTHER, MEDICARE ==
[2020-02-24 15:59] LABS: Alanine Aminotransfer (ALT/SGP 19 U/L (12-78); Albumin, Blood 2.9 g/dL (3.4-5.0); Albumin/Globulin Ratio 0.9 (0.8-1.8); Alk Phos 104 U/L (50-136); Anion Gap 7 mmol/L (6-16); Aspartate Aminotrans (AST/SGOT 23 U/L (12-37); Bilirubin, Total 0.3 mg/dL (0.1-1.0); Blood Urea Nitrogen 15 mg/dL (8-24); CO2, Blood 30 mmol/L (21-32); Calcium, Blood 9.1 mg/dL (8.5-10.1); Chloride, Blood 103 mmol/L (98-108); Creatinine, Blood 0.68 mg/dL (0.40-1.00); Globulin, Blood 3.2 g/dL (2.2-4.0); Glomerular Filtration Rate >60 (60-); Glucose, Blood 113 mg/dL (70-99); Potassium, Blood 4.1 mmol/L (3.5-5.5); Sodium, Blood 140 mmol/L (136-145); Total Protein, Blood 6.1 g/dL (6.4-8.2)
== END ==
LOC: OLS 12:15 → LAB SHORT 12:15
PROVIDERS: Family Medicine
DX: I48.0 Paroxysmal atrial fibrillation (principal); I21.4 Non-ST elevation (NSTEMI) myocardial infarction
CPT/HCPCS: 80053; 83880

== ENCOUNTER 2020-05-01 13:48 | Emergency (ER) | payer OTHER, MEDICARE ==
[~2020-05-01] VITALS: Ht 154.9 cm; Wt 90.7 kg
[2020-05-01] MEDS ORDERED: OXYC5 PO (15:41)
== END 2020-05-01 18:33 | disposition home or self-care (01) ==
LOC: ER 13:48
DX: M54.5 Low back pain (principal); L98.419 Non-pressure chronic ulcer of buttock with unspecified severity; Z79.899 Other long term (current) drug therapy; I10 Essential (primary) hypertension; F32.9 Major depressive disorder, single episode, unspecified; K21.9 Gastro-esophageal reflux disease without esophagitis; Z87.891 Personal history of nicotine dependence
CPT/HCPCS: 72170; 99283-25

== ENCOUNTER 2020-05-05 07:33 | Inpatient (IN) | payer OTHER, MEDICARE ==
[~2020-05-05] VITALS: Ht 154.9 cm; Wt 93.7 kg
[2020-05-05 08:07] LABS: BASOPHILS ABSOLUTE AUTO 0.04 K/mm3 (0.00-0.23); BASOPHILS PERCENT AUTO 1 % (0-2); EOSINOPHILS ABSOLUTE AUTO 0.15 K/mm3 (0.00-0.68); EOSINOPHILS PERCENT AUTO 2 % (0-6); Hematocrit 22.4 % (33.0-51.0); IMMATURE GRAN ABSOLUTE AUTO 0.04 K/mm3 (0.00-0.10); IMMATURE GRAN PERCENT AUTO 1 % (0-1); LYMPHOCYTES ABSOLUTE AUTO 1.46 K/mm3 (0.84-5.20); LYMPHOCYTES PERCENT AUTO 19 % (21-46); MONOCYTES ABSOLUTE AUTO 0.63 K/mm3 (0.16-1.47); MONOCYTES PERCENT AUTO 8 % (4-13); Mean Corpuscular HGB 17.6 pg (26.0-34.0); Mean Corpuscular HGB Conc 25.4 g/dL (31.5-36.5); Mean Corpuscular Volume 69 fL (80-100); Mean Platelet Volume 10.4 fL (9.1-12.4); NEUTROPHILS ABSOLUTE AUTO 5.26 K/mm3 (1.96-9.15); NEUTROPHILS PERCENT AUTO 69 % (41-73); NRBC ABSOLUTE 0.03 K/mm3 (0.00-0.02); NRBC Auto 0.4 /100 WBC (0.0-0.2); Platelet Count 386 K/mm3 (150-400); RDW Coefficient Variation 18.6 % (11.7-14.2); RDW Standard Deviation 45.9 fL (35.1-46.3); Red Blood Cell Count 3.23 M/mm3 (3.80-5.20); White Blood Cell Count 7.58 K/mm3 (4.00-11.30)
[2020-05-05 08:12] LABS: Hemoglobin 5.7 g/dL (11.5-16.0)
[2020-05-05 08:24] LABS: Albumin, Blood 3.3 g/dL (3.4-5.0); Bilirubin, Total 0.4 mg/dL (0.1-1.0); Bun/Creatinine Ratio 31.2 (12.0-20.0); Calcium, Blood 9.6 mg/dL (8.5-10.1); Creatinine, Blood 1.28 mg/dL (0.40-1.00); Globulin, Blood 3.2 g/dL (2.2-4.0); Total Protein, Blood 6.5 g/dL (6.4-8.2); Troponin I 0.162 ng/mL (0.000-0.040)
[2020-05-05] MEDS ORDERED: HYDCHL25 PO (09:30)
[2020-05-05 11:22] LABS: Percent Saturation 1.9 % (15.0-50.0)
--- NOTE | 2020-05-05 13:44 | NUR ---
ECHOCARDIOGRAM COMPLETE
[2020-05-05 18:06] LABS: Source, Urine Catheter
[2020-05-05 18:11] LABS: Bilirubin, Urine Neg (Neg); Blood, Urine 1+ (Neg); Glucose Qualitative, Urine Neg (Neg); Ketones, Urine Neg (Neg); Leukocyte Esterase, Urine Neg (Neg); Nitrite, Urine Neg (Neg); Protein, Urine Neg (Neg); Urobilinogen, Urine NORM (Normal)
[2020-05-05 18:17] LABS: Appearance, Urine Clear (Clear); Color, Urine Pale Yellow (P-Yellow); Red Blood Cells, Urine Not Seen /hpf (0-2); White Blood Cells, Urine Not Seen /hpf (0-5)
[2020-05-05 18:18] LABS: Bacteria Not Seen /hpf; Squamous Epithelial Cells Rare /hpf (Few)
--- NOTE | 2020-05-05 19:30 | NUR ---
PT ARRIVED TO THE UNIT VIA STRETCHER. PT IS ALERT AND ORIENTED X3 EXTREMELY HARD OF HEARING. PT IS HERE FOR ACUTE ANEMIA POSS GI BLEED, HGB AT 5.7 2 TOTAL OF PRBC INFUSED REPEAT H&H AT 8P. PT LUNGS COARSE AND WHEEZY UPON ARRIVAL, PT C/O /SOB, SATS ABOVE 95% ON ROOMAIR, ORDER FOR COPD/BD PROTOCOL PT WAS RELIEVED AFTER BREATHING TX, TOTAL OF 40MG LASIX WAS ALSO GIVEN. PT WAS ALSO GIVEN 1000MG MG SULFATE PT HAD FALSE RUNS OF TORSADES RHYTHM ON THE MONITOR UPON GETTING UP TO USE THE COMMODE. DR HELTON VERIFIED IT WAS NOT A REAL ONE, PT WAS NOT C/O ANY SYMPTOMS AT ALL. PT IS NOW ON BED REST [place] IN PLACE SINCE PT IS DIURESING. DR BARRIOS ALSO SAW PT THIS SHIFT, PT IS FOR POSS ENDOSCOPY TOMORROW. NO OTHER ISSUES ENCOUNTERED FOR THE SHIFT REPROT GIVEN TO KATHYA MELÉNDEZ
[2020-05-05 20:23] LABS: Hematocrit 29.9 % (33.0-51.0); Hemoglobin 8.5 g/dL (11.5-16.0)
[2020-05-06 04:16] LABS: BASOPHILS ABSOLUTE AUTO 0.05 K/mm3 (0.00-0.23); BASOPHILS PERCENT AUTO 0 % (0-2); EOSINOPHILS ABSOLUTE AUTO 0.05 K/mm3 (0.00-0.68); EOSINOPHILS PERCENT AUTO 0 % (0-6); Hematocrit 28.1 % (33.0-51.0); IMMATURE GRAN ABSOLUTE AUTO 0.11 K/mm3 (0.00-0.10); IMMATURE GRAN PERCENT AUTO 1 % (0-1); LYMPHOCYTES ABSOLUTE AUTO 1.41 K/mm3 (0.84-5.20); LYMPHOCYTES PERCENT AUTO 12 % (21-46); MONOCYTES ABSOLUTE AUTO 0.92 K/mm3 (0.16-1.47); MONOCYTES PERCENT AUTO 8 % (4-13); Mean Corpuscular HGB 20.5 pg (26.0-34.0); Mean Corpuscular HGB Conc 28.5 g/dL (31.5-36.5); Mean Corpuscular Volume 72 fL (80-100); NEUTROPHILS PERCENT AUTO 79 % (41-73); NRBC ABSOLUTE 0.06 K/mm3 (0.00-0.02); NRBC Auto 0.5 /100 WBC (0.0-0.2); Platelet Count 365 K/mm3 (150-400); RDW Coefficient Variation 19.9 % (11.7-14.2); RDW Standard Deviation 50.4 fL (35.1-46.3); Red Blood Cell Count 3.91 M/mm3 (3.80-5.20); White Blood Cell Count 12.04 K/mm3 (4.00-11.30)
[2020-05-06 04:28] LABS: Stool Occult Blood Guaiac 1 Pos (Neg)
[2020-05-06 04:30] LABS: International Normalized Ratio 1.11; Prothrombin Time Results 11.8 Sec (9.7-11.5)
[2020-05-06 04:32] LABS: Alanine Aminotransfer (ALT/SGP 13 U/L (12-78); Albumin, Blood 3.1 g/dL (3.4-5.0); Alk Phos 96 U/L (50-136); Anion Gap 5 mmol/L (6-16); Aspartate Aminotrans (AST/SGOT 9 U/L (12-37); Bilirubin, Total 0.9 mg/dL (0.1-1.0); Blood Urea Nitrogen 29 mg/dL (8-24); Bun/Creatinine Ratio 34.2 (12.0-20.0); CO2, Blood 32 mmol/L (21-32); Calcium, Blood 9.5 mg/dL (8.5-10.1); Chloride, Blood 99 mmol/L (98-108); Creatinine, Blood 0.85 mg/dL (0.40-1.00); Globulin, Blood 3.2 g/dL (2.2-4.0); Glomerular Filtration Rate >60 (60-); Glucose, Blood 136 mg/dL (70-99); Magnesium, Blood 1.8 mg/dL (1.6-2.4); Potassium, Blood 3.7 mmol/L (3.5-5.5); Sodium, Blood 136 mmol/L (136-145); Total Protein, Blood 6.3 g/dL (6.4-8.2)
--- NOTE | 2020-05-06 06:03 | NUR ---
ASSUMED CARE OF PATIENT AT 1915, PATIENT WITH EXPIRATORY WHEEZES, ALERT AND ORIENTED NOT CP BUT IS COMPLAINING OF SOB WITH ACTIVITY. MOVED TO CHAIR AND BACK TO BED TO FIND A BETTER POSITION FOR BREATHING. ON 2L NC. HEMOGLOBIN CAME BACK 8 AFTER TRANSFUSION. STOOL SAMPLE SENT TO LAB. BED LOWERED TO LOWEST POSITION, CALL LIGHT WITHIN REACH. WILL CONTINUE TO MONITOR UNTIL END OF SHIFT
--- NOTE | 2020-05-06 11:50 | NUR ---
ASSUME CARE: PT CONVERTED TO NSR AT 70'S THIS MORNING, THE REST OF THE VITALS REMAINED STABLE. PT TITRATED TO 1L OF O2 VIA NASAL CANNULA. PT TO HAVE ENDOSCOPY DONE TODAY IN THE AFTERNOON. PT REMAINED NPO. NO OTHER COMPLAINS/ISSUES AT THIS TIME. WILL MONITOR
--- NOTE | 2020-05-06 16:00 | NUR ---
PT TRANSFERED TO [facility] VIA GURNEY FROM PCU. History, Chart, Medications and Allergies reviewed before start of procedure. Lungs clear T/O to Auscultation. Patient confirms NPO status and agrees with scheduled surgery. Pre-Op teaching done. Pt verbalizes understanding.
--- NOTE | 2020-05-06 16:19 | NUR ---
05/06/20 1617 Yoni Taveras History, Chart, Medications and Allergies reviewed before start of procedure.MONITOR INTACT WITH CONTINUOUS PULSE OXIMETRY AND INTERMITTENT BP.3-LEAD EKG REVIEWED WITH PHYSICIAN PRIOR TO START OF PROCEDURE.O2 VIA N/C INTACT THROUGHOUT SEDATION/PROCEDURE. See Anesthesia record.
--- NOTE | 2020-05-06 16:42 | NUR ---
PT CURRENTLY OFF TO DAY SURGERY FOR ENDOSCOPY.
--- NOTE | 2020-05-06 18:01 | NUR ---
PT SUMMARY: SEE PREVIOUS NOTES: PT ALERT AND ORIENTED, VITALS STABLE HRR CONVERTED TO NSR 70'S, BP SYSTOLIC 120'S, SATS ABOVE 95% ON 2L OF O2 VIA NC. ENDOSCOPY DONE TODAY PT IS POSITIVE FOR ESOPHAGEAL VARICES NO INTERVENTION DONE CURRENTLY NOT ACTIVELY BLEEDING. PER DR BARRIOS PT CANNOT BE ON ANY BLOOD THINNERS ANYMORE. NO OTHER ISSUES ENCOUNTERED FOR THE SHIFT, PT NOW ON CARDIAC DIET. WORKED WITH THERAPY WITH NO ISSUES, UP IN THE RECLINER MOST OF THE SHIFT. TYLENOL ORDERED FOR BACK PAIN. PT CURRENTLY RESTIGN IN BED CALL LIGHTS WITHIN REACH WILL REPORT TO ONCOMING SHIFT.
--- NOTE | 2020-05-07 06:36 | NUR ---
SHIFT SUMMARY: PATIENT VSS, C/O NOT ENOUGH PAIN CONTROL WITH TYLENOL BUT SLEEPS WELL AFTER ADMINISTRATION OF MEDICATION. NO OTHER ISSUES NOTED, BED LOW AND LOCKED, CALL LIGHT WITHIN REACH.
[2020-05-07 09:30] LABS: Hematocrit 29.8 % (33.0-51.0); Hemoglobin 8.3 g/dL (11.5-16.0); Mean Corpuscular HGB 20.6 pg (26.0-34.0); Mean Corpuscular HGB Conc 27.9 g/dL (31.5-36.5); Mean Corpuscular Volume 74 fL (80-100); Mean Platelet Volume 9.8 fL (9.1-12.4); NRBC ABSOLUTE 0.03 K/mm3 (0.00-0.02); NRBC Auto 0.3 /100 WBC (0.0-0.2); Platelet Count 409 K/mm3 (150-400); RDW Coefficient Variation 21.2 % (11.7-14.2); RDW Standard Deviation 55.3 fL (35.1-46.3); Red Blood Cell Count 4.02 M/mm3 (3.80-5.20); White Blood Cell Count 8.91 K/mm3 (4.00-11.30)
[2020-05-07 09:49] LABS: Anion Gap 4 mmol/L (6-16); Blood Urea Nitrogen 23 mg/dL (8-24); Bun/Creatinine Ratio 28.3 (12.0-20.0); CO2, Blood 33 mmol/L (21-32); Calcium, Blood 9.8 mg/dL (8.5-10.1); Chloride, Blood 100 mmol/L (98-108); Creatinine, Blood 0.81 mg/dL (0.40-1.00); Glomerular Filtration Rate >60 (60-); Glucose, Blood 118 mg/dL (70-99); Potassium, Blood 3.6 mmol/L (3.5-5.5); Sodium, Blood 137 mmol/L (136-145)
--- NOTE | 2020-05-07 18:25 | NUR ---
PT SUMMARY: PT ALERT AND ORIENTED. NO COMPLAINS/ISSUES ENCOUNTERED FOR THE SHIFT, VITALS HAS BEEN STABLE. PT PARTICIPATED WITH THERAPY NO ISSUES. PT WAS UP MOSTLY IN THE RECLINER FOR THE SHIFT. PT PLAN TO [facility]CHARGE [facility] PT IS AWARE AND AGREEABLE. WILL REPORT TO ONCOMING SHIFT
--- NOTE | 2020-05-08 05:35 | NUR ---
SHIFT SUMMARY: PATIENT HAD SOME EPISODES OF FORGETFUL/CONFUSED MOMENTS, NO OTHER ISSUES NOTED, CALL LIGHT WITHIN EACH, BED LOW AND LOCKED
--- NOTE | 2020-05-08 10:11 | NUR ---
ASSUME CARE: PT PLAN TO DISCHARGE TO [facility] POSSIBLY TODAY/TOMORROW, PT TO BE EVALUATED TODAY. PT'S VITALS HAS BEEN STABLE, NO ISSUES ENCOUNTERED OF THIS TIME. WILL MONITOR
[2020-05-08] MEDS ORDERED: AMLO5 PO (17:01)
[2020-05-08] MEDS ORDERED: ATOR20 PO (17:02)
[2020-05-08] MEDS ORDERED: METO50ER PO (17:04)
[2020-05-08] MEDS ORDERED: FURO40 PO (17:05)
--- NOTE | 2020-05-08 17:27 | NUR ---
PT TRANSFERRED TO [facility] FOR REHAB, REPORT GIVEN TO ALEXANDRA MELÉNDEZ. PACKET SENT WITH PT'S DISCHARGE MEDICATION RECONCILATION, INSTRUCTIONS AND POLST. BELONGINGS SENT WITH PT, SISTER AT BEDSIDE WHEN PT WAS TRANSPORTED, PT TRANSPORTED THRU [facility] VIA WHEELCHAIR. PT LEFT AT 1715.
== END 2020-05-08 17:16 | DRG 811 ==
LOC: ER 07:33 → PCU 11:40
PROVIDERS: Emergency Medicine; Internal Medicine; Nurse Practitioner Acute Care; ADMIT Family Medicine
PROC: 30233N1 Transfusion of Nonautologous Red Blood Cells into Peripheral Vein, Percutaneous Approach (ICD-10-PCS; principal; 2020-05-05)
PROC: 0DJ08ZZ Inspection of Upper Intestinal Tract, Via Natural or Artificial Opening Endoscopic (ICD-10-PCS; 2020-05-06)
DX: D62 Acute posthemorrhagic anemia (principal); I50.21 Acute systolic (congestive) heart failure; I21.4 Non-ST elevation (NSTEMI) myocardial infarction; I85.01 Esophageal varices with bleeding; N17.9 Acute kidney failure, unspecified; Z20.828 Contact with and (suspected) exposure to other viral communicable diseases; I48.0 Paroxysmal atrial fibrillation; I10 Essential (primary) hypertension; E78.5 Hyperlipidemia, unspecified; F32.9 Major depressive disorder, single episode, unspecified; K21.9 Gastro-esophageal reflux disease without esophagitis; I25.10 Atherosclerotic heart disease of native coronary artery without angina pectoris; I11.0 Hypertensive heart disease with heart failure; R91.8 Other nonspecific abnormal finding of lung field; Z87.891 Personal history of nicotine dependence; Z79.01 Long term (current) use of anticoagulants; Z79.1 Long term (current) use of non-steroidal anti-inflammatories (NSAID); Z79.891 Long term (current) use of opiate analgesic; Z79.51 Long term (current) use of inhaled steroids; Z79.899 Other long term (current) drug therapy
CPT/HCPCS: 36415; 36430; 71046; 71275; 74175; 80048; 80053; 81001; 82272; 82550; 82728; 83540; 83550; 83735; 83880; 84100; 84145; 84484; 85014; 85018; 85025; 85027; 85610; 86850; 86900; 86901; 86923; 93005; 93010; 93308; 93321; 94640; 94762; 96374; 97110; 97116; 97162; 97166; 97530; 99285-25; A9270; A9270-GY; C9113; J1940; J2001; J2060; J2704; J2916; J3475; J7030; P9016; Q9967; U0002